=== PATIENT | female | born 1945 | race Caucasian/White ===

== ENCOUNTER → 2017-02-20 | Outpatient (CLI) | payer MEDICARE ==
--- NOTE | 2017-02-20 14:11 | BD ---
EXAMINATION TYPE: MG DEXA axial skeleton. DATE OF EXAM: 02/20/2017 COMPARISON: NONE CLINICAL HISTORY: Z13.820 Screening for Osteoporosis Height: 63.5 Weight: 147.4 FRAX RISK QUESTIONS: Alcohol (3 or more units per day): no Family History (Parent hip fracture): no Glucocorticoids (More than 3mos): yes- asthma meds (Ex: prednisone, prednisolone, methylprednisolone, dexamethasone, and hydrocortisone). History of Fracture in Adulthood: no Secondary Osteoporosis: 1. Type 1 Diabetes: no 2. Hyperthyroidism: no 3. Menopause before 45: yes 4. Malnutrition: no 5. Chronic liver disease: no Rheumatoid Arthritis: yes Current Tobacco Use: no RISK FACTORS HISTORY OF: Hip Fracture (Right/Left): no Spine Fracture: no History of Wrist Fracture: no Surgery to Spine/Hip(right/left)/Wrist (right/left): no Family History of Osteoporosis: yes/ aunt Active: yes Diet low in dairy products/other sources of calcium: no Postmenopausal woman: age 43 Lost more than 2 inches in height since high school: no Frequent falls: no Poor Health: no Hyperparathyroidism: no Adrenal Insufficiency: no MEDICATIONS: ultram, probiotic, zantac Prednisone or other steroids: yes -asthma EXAM MEASUREMENTS: Bone mineral densitometry was performed using the [employer] System. Bone mineral density as measured about the Lumbar spine is: ----- L1-L4(G/cm2): 0.674 T Score Values are as follows: ----- L2: -4.6 ----- L3: -4.3 ----- L4: -3.9 ----- L1-L4: -4.2 Bone mineral density has: decreased -18.2 % since study of: 08.06.2002 Bone mineral density about the R hip (g/cm2): 0.755 Bone mineral density about the L hip (g/cm2): 0.769 T Score values are as follows: -----R Neck: -2.0 -----L Neck: -1.9 -----R Total: -1.7 -----L Total: -1.2 Bone mineral density has: decreased -14.9 % since study of: 08.06.2002 IMPRESSION: 1. Osteoporosis lumbar spine. 2. Osteopenia bilateral femora NOTE: T-SCORE=SD OF THE YOUNG ADULT MEAN.
--- NOTE | 2017-02-21 11:18 | MM ---
Reason for exam: screening (asymptomatic). Last mammogram was performed 9 years and 3 months ago. History: Patient is postmenopausal. Physical Findings: A clinical breast exam by your physician is recommended on an annual basis and results should be correlated with mammographic findings. MG 3D Screening Mammo W/Cad Bilateral CC and MLO view(s) were taken. Prior study comparison: November 13, 2007, bilateral digital screening mammogram. October 26, 2004, bilateral screening mammogram. There are scattered fibroglandular densities. Finding: There are a few typically benign dystrophic calcifications in both breasts. There is no discrete abnormality. ASSESSMENT: Negative, BI-RAD 1 RECOMMENDATION: Routine screening mammogram of both breasts in 1 year.
== END | disposition home or self-care (01) ==
LOC: RADMAMWWP 11:55
PROVIDERS: ATTEND Family Medicine
DX: Z12.31 Encounter for screening mammogram for malignant neoplasm of breast (principal); M85.89 Other specified disorders of bone density and structure, multiple sites; M81.0 Age-related osteoporosis without current pathological fracture
CPT/HCPCS: 77080; 77063; G0202

== ENCOUNTER → 2017-04-21 | Outpatient (CLI) | payer MEDICARE ==
--- NOTE | 2017-04-21 12:36 | XR ---
EXAMINATION TYPE: XR chest 2V DATE OF EXAM: 04/21/2017 COMPARISON: NONE HISTORY: Shortness of breath TECHNIQUE: Frontal and lateral views of the chest are obtained. FINDINGS: Scattered senescent parenchymal changes noted. Hyperinflation compatible with COPD. No evidence for infiltrate. No evidence for atelectasis. Heart size is stable. Mediastinal structures are stable and grossly unremarkable. No evidence for hilar prominence. Degenerative changes dorsal spine. IMPRESSION: 1. No evidence for acute pulmonary disease.
== END | disposition home or self-care (01) ==
LOC: RADXRMAIN 12:18
PROVIDERS: ATTEND Internal Medicine Pulmonary Disease
DX: R06.02 Shortness of breath (principal)
CPT/HCPCS: 71020

== ENCOUNTER → 2018-06-11 | Outpatient (CLI) | payer MEDICARE ==
--- NOTE | 2018-06-12 05:24 | CT ---
EXAMINATION TYPE: CT chest wo con DATE OF EXAM: 06/11/2018 COMPARISON: 05/16/2017 and 01/04/2011 HISTORY: 72 year-old female history of asthma, f/u lung nodule TECHNIQUE: Contiguous axial scanning of the chest without IV contrast. Coronal and sagittal reconstru ctions performed. CT DLP: 444 mGycm Automated exposure control for dose reduction was used. FINDINGS: Heart normal size without pericardial effusion. Ectatic ascending aorta 3.9 cm with conventional arch was a branching anatomy. No thoracic lymphadenopathy by CT size criteria. Biapical pleural parenchymal scarring redemonstrated along with mild to moderate upper lung predomina nt centrilobular emphysema and mild diffuse bronchial wall thickening. Stable 7 mm subpleural pulmonary nodule overlying the right hemidiaphragm, axial image 46. Stability for a year suggests a benign etiology. It is likely present back in 2010 as well. Some strandy scarring at the inferior lingula is unchanged. No new pulmonary nodule is seen. No conso lidation or pleural effusion. Small to moderate-sized hernia. Indeterminate bilateral renal lesions measuring up to 2.6 cm, 2 seen on the right and 1 anteriorly on the left. These are also seen on 05/16/2017 suggesting benign etiologies. Tiny subcentimeter hypodens ity right hepatic lobe was present back in 2010. Bones: Vertebral compression deformity of T7 redemonstrated, unchanged for a year. IMPRESSION: 1. 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 2. STABLE BIAPICAL PLEURAL PARENCHYMAL SCARRING AND A 7 MM SUBPLEURAL RIGHT BASILAR PULMONARY NODULE SUGGESTING A BENIGN ETIOLOGY. 3. SMALL TO MODERATE SIZED HIATAL HERNIA, STABLE BILATERAL RENAL LESIONS MEASURING UP TO 2.[address] OF CYSTS, AND STABLE T7 VERTEBRAL COMPRESSION DEFORMITY FROM LAST YEAR.
== END | disposition home or self-care (01) ==
LOC: RADCTMAIN 15:20
PROVIDERS: ATTEND Internal Medicine Pulmonary Disease
DX: J43.9 Emphysema, unspecified (principal); J98.4 Other disorders of lung; R91.1 Solitary pulmonary nodule; K44.9 Diaphragmatic hernia without obstruction or gangrene; J45.40 Moderate persistent asthma, uncomplicated
CPT/HCPCS: 71250

== ENCOUNTER → 2019-03-08 | Outpatient (CLI) | payer MEDICARE ==
--- NOTE | 2019-03-08 20:08 | BD ---
EXAMINATION TYPE: Axial Bone Density DATE OF EXAM: 03/08/2019 COMPARISON:02/20/2017 CLINICAL HISTORY: 73-year-old female age-related osteoporosis Height: 62.7 IN Weight: 146 LBS FRAX RISK QUESTIONS: Glucocorticoids (More than 3mos): QVAR INHALER. 80 M/G 2 PUFFS PER DAY (Ex: prednisone, prednisolone, methylprednisolone, dexamethasone, and hydrocortisone). Secondary Osteoporosis: 3. Menopause before 45: YES AGE 43 RISK FACTORS HISTORY OF: Spine Fracture: YES THORACIC SPINE When: 2012 Family History of Osteoporosis: YES SISTER Active: MODERATE Postmenopausal woman: AGE 43 MEDICATIONS: Prednisone or other steroids: QVAR 80 MG 2 PUFFS PER DAY How Lon YEARS Osteoporosis Medications: YES Which medication: RECLAST How Lon Additional Medications: VIT D, QVAR, PAIN PILL, PROBIOTIC EXAM MEASUREMENTS: Bone mineral densitometry was performed using the [employer] System. Bone mineral density as measured about the Lumbar spine is: ----- L1-L4(G/cm2): 0.762 T Score Values are as follows: ----- L2: -3.9 ----- L3: -3.2 ----- L4: -3.5 ----- L1-L4: -3.5 Bone mineral density has: Increased 12.9% since study of: 02/20/2017 Bone mineral density about the R hip (g/cm2): 0.758 Bone mineral density about the L hip (g/cm2): 0.824 T Score values are as follows: -----R Neck: -2.0 -----L Neck: -1.5 -----R Total: -1.4 -----L Total: -1.0 Bone mineral density has: Increased 3.4% since study of: 02/20/2017 IMPRESSION: Osteoporosis (T Score less than -2.5). There is increased fracture risk and therapy is usually indicated based on age. Re-Screen 1-2 years. NOTE: T-SCORE=SD OF THE YOUNG ADULT MEAN.
--- NOTE | 2019-03-09 10:06 | MM ---
Reason for exam: screening (asymptomatic). Last mammogram was performed 2 years and 1 month ago. History: Patient is postmenopausal. Physical Findings: A clinical breast exam by your physician is recommended on an annual basis and results should be correlated with mammographic findings. MG 3D Screening Mammo W/Cad Bilateral CC and MLO view(s) were taken. Prior study comparison: February 20, 2017, bilateral MG 3d screening mammo w/cad. November 13, 2007, bilateral digital screening mammogram. The breast tissue is heterogeneously dense. This may lower the sensitivity of mammography. Benign appearing bilateral calcifications. No suspicious abnormality. No significant changes when compared with prior studies. ASSESSMENT: Benign, BI-RAD 2 RECOMMENDATION: Routine screening mammogram of both breasts in 1 year.
== END | disposition home or self-care (01) ==
LOC: RADMAMWWP 10:12
PROVIDERS: ATTEND Family Medicine
DX: Z12.31 Encounter for screening mammogram for malignant neoplasm of breast (principal); M81.0 Age-related osteoporosis without current pathological fracture
CPT/HCPCS: 77063; 77067; 77080

== ENCOUNTER → 2021-03-28 | Outpatient (CLI) | payer MEDICARE ==
--- NOTE | 2021-03-30 09:46 | MM ---
Reason for exam: screening (asymptomatic). Last mammogram was performed 2 years and 1 month ago. History: Patient is postmenopausal. Physical Findings: A clinical breast exam by your physician is recommended on an annual basis and results should be correlated with mammographic findings. MG Screening Mammo w CAD Bilateral CC and MLO view(s) were taken. Prior study comparison: March 08, 2019, bilateral MG 3d screening mammo w/cad. February 20, 2017, bilateral MG 3d screening mammo w/cad. There are scattered fibroglandular densities. There are benign appearing round calcifications bilaterally. There is no discrete abnormality. ASSESSMENT: Benign, BI-RAD 2 RECOMMENDATION: Routine screening mammogram of both breasts in 1 year.
== END | disposition home or self-care (01) ==
LOC: RADMAMWWP 16:09
PROVIDERS: ATTEND Family Medicine
DX: Z12.31 Encounter for screening mammogram for malignant neoplasm of breast (principal); Z78.0 Asymptomatic menopausal state
CPT/HCPCS: 77067

== ENCOUNTER 2021-06-28 23:20 | Emergency (ER) | payer MEDICARE ==
[2021-06-28 23:28] VITALS: RESP 16
--- NOTE | 2021-06-29 01:04 | XR ---
EXAMINATION TYPE: XR Hip RT and AP Pelvis DATE OF EXAM: 06/29/2021 COMPARISON: NONE HISTORY: Hip pain TECHNIQUE: 3 views FINDINGS: The pelvic ring is intact. Proximal right femur and hip joint are intact. Sacroiliac joints are intact. IMPRESSION: Negative pelvis and right hip exam. No fracture.
--- NOTE | 2021-06-29 01:40 | CT ---
EXAMINATION TYPE: CT pelvis wo con DATE OF EXAM: 06/29/2021 COMPARISON: 09/19/2014 HISTORY: Pelvic pain after fall; right hip pain CT DLP: 325.6 mGycm Automated exposure control for dose reduction was used. Images obtained from the lower lumbar spine to the subtrochanteric femurs without contrast. Appendix appears normal. There is no free fluid in the pelvis. Bladder distends smoothly. There is no evidence of pelvic mass. Sacroiliac joints are intact. There is L5 spondylolysis with a first-degree L5-S1 spondylolisthesis. The proximal femurs and hip joints are intact. There is no evidence of hip fracture. IMPRESSION: No acute bony abnormality. There is a first-degree L5-S1 spondylolisthesis. No change compared to old exam. No evidence of hip fracture.
--- NOTE | 2021-06-29 02:02 | ED ---
Fall HPI - General Chief Complaint: Fall Stated Complaint: Fall, Back Pain Time Seen by Provider: 06/28/21 23:45 Source: patient, EMS Mode of arrival: EMS - History of Present Illness Initial Comments: 75-year-old female patient presents to the emergency department today for evaluation of right hip and groin pain. States earlier in the day around 1630 she fell down a couple of steps out of the garage. States that she laid on the ground for approximately 30 minutes then was able to get up and get herself into the house though with a lot of pain. States that she was able to sit without pain. States when she twists or lays on her right side the pain worsens. States in is over the right lateral hip and into the right groin. States walking makes the pain worse. She denies any pain radiation down her legs. Denies numbness or tingling to the lower extremities. She denies hitting her head or losing consciousness. Denies any neck or back pain. Denies use of blood thinning medications. She does have history of chronic sciatica and takes Ultram. She did not take any today. Patient denies any headache, chest pain, shortness of breath, dizziness, weakness, abdominal pain, nausea, vomiting, or difficulties with bowel movements or urination. - Related Data Home Medications Medication Instructions Recorded Confirmed Beclomethasone Dipropionate [Qvar 2 puff INHALATION DAILY 10/26/13 04/11/17 80 mcg/puff] L.acidoph/B.long/L.plant/B.lac 1 each PO HS 10/26/13 04/11/17 [Probiotic Acidophilus Beads] Calcium Citrate/Vitamin D3 1 each PO DAILY 04/11/17 04/11/17 [Calcitrate + Vit D Caplet] raNITIdine HCL [Zantac] 75 mg PO DAILY 04/11/17 04/11/17 traMADol HCl [Ultram] 50 mg PO Q6H PRN 04/11/17 04/11/17 Allergies Allergy/AdvReac Type Severity Reaction Status Date / Time No Known Allergies Allergy Verified 06/28/21 23:24 Review of Systems ROS Statement: Those systems with pertinent positive or pertinent negative responses have been documented in the HPI. ROS Other: All systems not noted in ROS Statement are negative. Past Medical History Past Medical History: Asthma, GERD/Reflux, Musculoskeletal Disorder Additional Past Medical History / Comment(s): fx vertebrae-back 2012, GERD worse lately History of Any Multi-Drug Resistant Organisms: None Reported Past Surgical History: Orthopedic Surgery Additional Past Surgical History / Comment(s): Multiple lumbar HELEN's for back pain. Bilateral carpal tunnel Past Anesthesia/Blood Transfusion Reactions: No Reported Reaction Past Psychological History: No Psychological Hx Reported Smoking Status: Former smoker Past Alcohol Use History: None Reported Past Drug Use History: None Reported General Exam Limitations: no limitations General appearance: alert, in no apparent distress, other (This is a well- developed, well-nourished elderly female patient in no acute distress.) Eye exam: Present: normal appearance, PERRL, EOMI. Absent: scleral icterus, conjunctival injection, nystagmus, periorbital swelling ENT exam: Present: normal exam, normal oropharynx, mucous membranes moist Neck exam: Present: normal inspection, full ROM, other (Nontender, no step-off, no deformity to firm midline palpation of the posterior cervical spine. Full range of motion without pain or limitation.). Absent: tenderness, meningismus, lymphadenopathy Respiratory exam: Present: normal lung sounds bilaterally. Absent: respiratory distress, wheezes, rales, rhonchi, stridor Cardiovascular Exam: Present: regular rate, normal rhythm, normal heart sounds. Absent: systolic murmur, diastolic murmur, rubs, gallop, clicks GI/Abdominal exam: Present: soft, normal bowel sounds. Absent: distended, tenderness, guarding, rebound, rigid Extremities exam: Present: normal inspection, full ROM, normal capillary refill, other (Skin to the extremities is pink, warm, dry. Cap refill less than 3 seconds. Pedal and posttibial pulses 2+.). Absent: tenderness, pedal edema, joint swelling, calf tenderness Back exam: Present: normal inspection, other (No bony step-off or deformity noted to for midline palpation of the thoracic and lumbar spines.). Absent: paraspinal tenderness, vertebral tenderness Neurological exam: Present: alert, oriented X3, CN II-XII intact Psychiatric exam: Present: normal affect, normal mood Skin exam: Present: warm, dry, intact, normal color. Absent: rash Course Vital Signs 06/28/21 06/29/21 23:25 02:11 Pulse Rate 63 82 Respiratory 16 16 Rate Blood Pressure 133/104 145/90 O2 Sat by Pulse 96 98 Oximetry Medical Decision Making - Medical Decision Making 75-year-old female patient presented to the emergency department today for evaluation of right hip and groin pain after a fall earlier today. Physical examination reveals normal neurovascular status of the lower extremities. No spinal tenderness. Abdomen soft and nontender. X-ray of the right hip and pelvis was obtained and was negative. CT the bony pelvis was obtained and showed no acute abnormalities. Patient is able to stand and ambulate though with some pain. She is given pain medication here. She will be discharged follow up with her primary care physician for recheck in one to days. Return parameters were discussed in detail patient verbalizes understanding and agrees with this plan. My attending is Dr. Panchal. - Radiology Data Radiology results: report reviewed, image reviewed CT pelvis without contrast was obtained. Report was reviewed in its entirety. Impression by Dr. Ledesma shows no acute bony abnormality. There is first- degree L5 to S1 spondylolisthesis. No change compared to old exam. No evidence of hip fracture. X-ray of the right hip and AP pelvis is obtained. Report was reviewed in its entirety. Impression by Dr. Ledesma shows negative pelvis and right hip exam. No fracture. Disposition Clinical Impression: Contusion of right hip, Strain of right hip Disposition: HOME SELF-CARE Condition: Good Instructions (If sedation given, give patient instructions): Low Back Strain (ED), Hip Contusion (ED) Additional Instructions: Apply ice to the painful areas. Take her home pain medication as needed. Follow-up with the primary care physician for further evaluation as soon as possible. Return for any new, worsening, or concerning symptoms. Is patient prescribed a controlled substance at d/c from ED?: No Referrals: Violette Henry MD [Primary Care Provider] - 1-2 days Time of Disposition: 02:02
[2021-06-29 02:12] VITALS: BP 145/90; PULSE 82
[2021-06-29] MEDS ORDERED: traMADol 50 MG TAB PO STA (02:13)
== END 2021-06-29 03:37 | disposition home or self-care (01) ==
LOC: EC 23:20
DX: S76.011A Strain of muscle, fascia and tendon of right hip, initial encounter (principal); S70.01XA Contusion of right hip, initial encounter; J45.909 Unspecified asthma, uncomplicated; K21.9 Gastro-esophageal reflux disease without esophagitis; Z87.891 Personal history of nicotine dependence; W10.9XXA Fall (on) (from) unspecified stairs and steps, initial encounter
CPT/HCPCS: 72192; 73502; 99284

== ENCOUNTER 2021-09-07 10:26 | Emergency (ER) | payer MEDICARE ==
[2021-09-07 10:31] VITALS: TEMP 98.6
--- NOTE | 2021-09-07 11:26 | ED ---
General Adult HPI - General Chief complaint: Arrhythmia/Palpitations Stated complaint: Heart Palpitations Time Seen by Provider: 09/07/21 11:01 Source: patient Mode of arrival: ambulatory Limitations: no limitations - History of Present Illness Initial comments: Dictation was produced using [employer] dictation software. please excuse any grammatical, word or spelling errors. Chief Complaint: 75-year-old female presents emergency department for palpitations History of Present Illness:. 75-year-old female she does not have any signif icant comorbidities. She states that overnight she is having multiple bouts of sensation of palpitations. Some was that she was not able to sleep. Denies any caffeine ingestion yesterday. Patient has had 1 time of palpitations several years ago that resolved on its own. She denies any chest pain. She otherwise feels well. She denies any palpitations at the moment. The ROS documented in this emergency department record has been reviewed and confirmed by me. Those systems with pertinent positive or negative responses have been documented in the HPI. All other systems are other negative and/or noncontributory. PHYSICAL EXAM: General Impression: Alert and oriented x3, not in acute distress HEENT: Normocephalic atraumatic, extra-ocular movements intact, pupils equal and reactive to light bilaterally, mucous membranes moist. Cardiovascular: Heart regular rate and rhythm Chest: Able to complete full sentences, no retractions, no tachypnea Abdomen: abdomen soft, non-tender, non-distended, no organomegaly Musculoskeletal: Pulses present and equal in all extremities, no peripheral edema Motor: no focal deficits noted Neurological: CN II-XII grossly intact, no focal motor or sensory deficits noted Skin: Intact with no visualized rashes Psych: Normal affect and mood ED course: 75-year-old well-appearing female presents emergency Department chief complaint palpitations. EKG interpretation: Ventricular rate 58, sinus bradycardia, WY interval 172, care 72, QTc 432. No WY prolongation, no QTC prolongation, no ST or T-wave changes noted. No old EKG for comparison. Overall, this EKG is unremarkable Laboratory evaluation obtained. CBC, metabolic panel is unremarkable. Troponin is negative per chest x-ray shows no acute findings. Patient's telemetry [facility] was reviewed showing no significant events. Patient reevaluated the bedside 12:30 PM found to be stable medical condition per she denies any palpitations while being in the ER. Patient will be discharged advised follow-up with primary care doctor for outpatient management per she is told that she would likely benefit from Holter monitoring. She is told to inquire with her primary care physician about having this arranged otherwise she is given referral to cardiology. - Related Data Home Medications Medication Instructions Recorded Confirmed Beclomethasone Dipropionate [Qvar 2 puff INHALATION RT-DAILY 10/26/13 09/07/21 80 mcg/puff] traMADol HCl [Ultram] 25 mg PO BID 04/11/17 09/07/21 Acetaminophen Tab [Tylenol Tab] 1,000 mg PO Q6H PRN 09/07/21 09/07/21 Cholecalciferol [Vitamin D3 (25 50 mcg PO DAILY 09/07/21 09/07/21 Mcg = 1000 Iu)] Latanoprost/Pf [Latanoprost 0.005% 1 drop RIGHT EYE HS 09/07/21 09/07/21 Eye Drop] Allergies Allergy/AdvReac Type Severity Reaction Status Date / Time No Known Allergies Allergy Verified 09/07/21 12:02 Review of Systems ROS Statement: Those systems with pertinent positive or pertinent negative responses have been documented in the HPI. ROS Other: All systems not noted in ROS Statement are negative. Past Medical History Past Medical History: Asthma, GERD/Reflux, Musculoskeletal Disorder Additional Past Medical History / Comment(s): fx vertebrae-back 2012, GERD worse lately History of Any Multi-Drug Resistant Organisms: None Reported Past Surgical History: Orthopedic Surgery Additional Past Surgical History / Comment(s): Multiple lumbar HELEN's for back pain. Bilateral carpal tunnel Past Anesthesia/Blood Transfusion Reactions: No Reported Reaction Past Psychological History: No Psychological Hx Reported Smoking Status: Former smoker Past Alcohol Use History: None Reported Past Drug Use History: None Reported General Exam Limitations: no limitations Course Vital Signs 09/07/21 09/07/21 10:28 10:56 Temperature 98.6 F Pulse Rate 68 Pulse Rate [ 56 L Telephone Information Supervisor ] Respiratory 20 Rate Blood Pressure 166/80 O2 Sat by Pulse 97 Oximetry Medical Decision Making - Lab Data Result diagrams: 09/07/21 11:13 09/07/21 11:13 Lab Results 09/07/21 09/07/21 09/07/21 Range/Units 11:13 11:13 11:13 WBC 6.4 (3.8-10.6) k/uL RBC 4.93 (3.80-5.40) m/uL Hgb 15.4 (11.4-16.0) gm/dL Hct 47.9 H (34.0-46.0) % MCV 97.2 (80.0-100.0) fL MCH 31.2 (25.0-35.0) pg MCHC 32.1 (31.0-37.0) g/dL RDW 13.0 (11.5-15.5) % Plt Count 353 (150-450) k/uL MPV 7.0 Neutrophils % 65 % Lymphocytes % 20 % Monocytes % 6 % Eosinophils % 6 % Basophils % 1 % Neutrophils # 4.1 (1.3-7.7) k/uL Lymphocytes # 1.3 (1.0-4.8) k/uL Monocytes # 0.4 (0-1.0) k/uL Eosinophils # 0.4 (0-0.7) k/uL Basophils # 0.0 (0-0.2) k/uL Sodium 138 (137-145) mmol/L Potassium 4.3 (3.5-5.1) mmol/L Chloride 108 H (98-107) mmol/L Carbon Dioxide 25 (22-30) mmol/L Anion Gap 5 mmol/L BUN 13 (7-17) mg/dL Creatinine 0.77 (0.52-1.04) mg/dL Est GFR (CKD-EPI)AfAm 89 (>60 ml/min/1.73 sqM) Est GFR (CKD-EPI)NonAf 77 (>60 ml/min/1.73 sqM) Glucose 83 (74-99) mg/dL Calcium 8.5 (8.4-10.2) mg/dL Magnesium 2.0 (1.6-2.3) mg/dL Troponin I <0.012 (0.000-0.034) ng/mL Disposition Clinical Impression: Palpitations Disposition: HOME SELF-CARE Condition: Good Instructions (If sedation given, give patient instructions): Heart Palpitations (ED) Is patient prescribed a controlled substance at d/c from ED?: No Referrals: Violette Henry MD [Primary Care Provider] - 1-2 days Tam Stokes MD [STAFF PHYSICIAN] - 1-2 days
[2021-09-07 11:30] LABS: Basophils % (A) 1 %; Eosinophils # (A) 0.4 k/uL (0-0.7); Eosinophils % (A) 6 %; HCT 47.9 % (34.0-46.0); HGB 15.4 gm/dL (11.4-16.0); Lymphocytes # (A) 1.3 k/uL (1.0-4.8); Lymphocytes % (A) 20 %; MCH 31.2 pg (25.0-35.0); MCHC 32.1 g/dL (31.0-37.0); MCV 97.2 fL (80.0-100.0); Monocytes # (A) 0.4 k/uL (0-1.0); Monocytes % (A) 6 %; Neutrophils # (A) 4.1 k/uL (1.3-7.7); Neutrophils % (A) 65 %; Platelet Count 353 k/uL (150-450); RBC 4.93 m/uL (3.80-5.40); WBC 6.4 k/uL (3.8-10.6)
[2021-09-07 11:45] LABS: Calcium 8.5 mg/dL (8.4-10.2)
[2021-09-07 11:46] LABS: Potassium 4.3 mmol/L (3.5-5.1)
--- NOTE | 2021-09-07 12:13 | XR ---
EXAMINATION TYPE: XR chest 1V portable DATE OF EXAM: 09/07/2021 COMPARISON: Chest x-ray 02/02/2017. CT chest June 11, 2018. HISTORY: Palpitations. TECHNIQUE: Single AP portable frontal upright view of the chest is obtained. FINDINGS: There is mild chronic emphysematous change without suspicious focal air space opacity, ple ural effusion, or pneumothorax seen. The cardiac silhouette size is within normal limits. The osse ous structures are demineralized. IMPRESSION: Chronic emphysematous change without acute pulmonary process.
[2021-09-07 13:12] VITALS: BP 124/78; PULSE 60; RESP 16
== END 2021-09-07 13:12 | disposition home or self-care (01) ==
LOC: EC 10:26
DX: R00.2 Palpitations (principal); J45.909 Unspecified asthma, uncomplicated; K21.9 Gastro-esophageal reflux disease without esophagitis; Z87.891 Personal history of nicotine dependence; Z79.899 Other long term (current) drug therapy
CPT/HCPCS: 36415; 71045; 80048; 83735; 84484; 85025; 93005; 99285

== ENCOUNTER → 2022-03-07 | Outpatient (CLI) | payer MEDICARE ==
--- NOTE | 2022-03-07 12:52 | CT ---
EXAMINATION TYPE: CT chest wo con CT DLP: 246.7 mGycm, Automated exposure control for dose reduction was used. DATE OF EXAM: 03/07/2022 12:33 PM COMPARISON: 06/11/2018 CLINICAL INDICATION:Female, 76 years old with history of R911, cough TECHNIQUE: Multiple axial images were obtained through the chest. Sagittal and coronal reformats were created for review. Contrast used: none. Oral contrast used: none. FINDINGS: LUNGS/ PLEURA: No evidence focal consolidation, pneumothorax or pleural fusion. Mild centrilobular em physema changes. No evidence for suspicious nodule. Streaky scarring seen in the left upper lobe. Ser ies 4 image 9, unchanged from prior in 2018. AIRWAY: Patent and unremarkable. HEART: Size within normal limits. MEDIASTINUM: No gross evidence of adenopathy. Slightly asymmetric distal esophageal thickening best a ppreciated on series 3 image 50 measuring up to 13 mm anteriorly. VASCULATURE: No aortic aneurysm. Infrarenal aortic ectasia measuring up to 2.2 cm. Ascending thoraci c aorta dilation up to 4.1 cm. MUSCULOSKELETAL: No acute osseous abnormalities, similar T7 compression deformity. SOFT TISSUES/LYMPH NODES: Unremarkable. LOWER NECK: No significant findings. UPPER ABDOMEN: Indeterminate right renal lesion measuring up to 19 mm and 30 Hounsfield units. Additi onal bilateral renal cysts. The gallbladder surgically absent. IMPRESSION: 1. No evidence for acute process within the chest. No evidence for pneumonia, 2. Asymmetric distal esophageal wall thickening further workup recommended, consider direct visualiz ation to rule out underlying adenocarcinoma. 3. Ascending thoracic aorta ectasia up to 4.1 cm, This may be minimally increased from 2018 where it was 3.9 cm. 4. Indeterminate right renal cyst. Consider MRI renal mass protocol for further characterization.
== END | disposition home or self-care (01) ==
LOC: RADCTMAIN 12:09
PROVIDERS: ATTEND Internal Medicine Pulmonary Disease
DX: J47.9 Bronchiectasis, uncomplicated (principal); K63.89 Other specified diseases of intestine; I77.810 Thoracic aortic ectasia
CPT/HCPCS: 71250

== ENCOUNTER 2023-06-21 10:03 | Emergency (ER) | payer MEDICARE ==
--- NOTE | 2023-06-21 10:57 | ED ---
General Adult HPI - General Source: patient Mode of arrival: ambulatory Limitations: no limitations <Brian Mehta - Last Filed: 06/21/23 11:07> <Brad Yadav - Last Filed: 06/21/23 14:26> - General Chief complaint: Upper Respiratory Infection Stated complaint: congestion sob - History of Present Illness Initial comments: Quick note: Patient states she started out with weakness 2 weeks ago. She went to the doctor and was diagnosed with a virus- was put on an antiviral. She then started a z-pack 5 days ago. 2 days she developed some shortness of breath. She denies fevers (Brian Mehta) Dictation was produced using [employer] dictation software. please excuse any grammatical, word or spelling errors. Chief Complaint: 77-year-old female presents emergency Department with URI type symptoms for a couple of weeks History of Present Illness: 77-year-old female presents with 2-3 weeks of cough congestion symptoms. Shortly course of antibiotics and acyclovir prescribed by her primary care physician. Patient states she's not improving. Denies any fever or constitutional symptoms. Denies any shortness of breath. She does have some sharp pleuritic chest pain to the right lower chest. Denies any history of DVTs PEs. Denies any lower extremity symptoms. Patient denies any shortness of breath. The ROS documented in this emergency department record has been reviewed and confirmed by me. Those systems with pertinent positive or negative responses have been documented in the HPI. All other systems are other negative and/or noncontributory. (Brad Yadav) - Related Data Home Medications Medication Instructions Recorded Confirmed Beclomethasone Dipropionate [Qvar 2 puff INHALATION RT-DAILY 10/26/13 09/07/21 80 mcg/puff] traMADol HCl [Ultram] 25 mg PO BID 04/11/17 09/07/21 Acetaminophen Tab [Tylenol Tab] 1,000 mg PO Q6H PRN 09/07/21 09/07/21 Cholecalciferol [Vitamin D3 (25 50 mcg PO DAILY 09/07/21 09/07/21 Mcg = 1000 Iu)] Latanoprost/Pf [Latanoprost 0.005% 1 drop RIGHT EYE HS 09/07/21 09/07/21 Eye Drop] Allergies Allergy/AdvReac Type Severity Reaction Status Date / Time No Known Allergies Allergy Verified 06/21/23 10:43 Review of Systems ROS Other: All systems not noted in ROS Statement are negative. <Brian Mehta - Last Filed: 06/21/23 11:07> ROS Other: All systems not noted in ROS Statement are negative. <Brad Yadav - Last Filed: 06/21/23 14:26> ROS Statement: Those systems with pertinent positive or pertinent negative responses have been documented in the HPI. Past Medical History Past Medical History: Asthma, GERD/Reflux, Musculoskeletal Disorder Additional Past Medical History / Comment(s): fx vertebrae-back 2012, GERD worse lately History of Any Multi-Drug Resistant Organisms: None Reported Past Surgical History: Orthopedic Surgery Additional Past Surgical History / Comment(s): Multiple lumbar HELEN's for back pain. Bilateral carpal tunnel Past Anesthesia/Blood Transfusion Reactions: No Reported Reaction Past Psychological History: No Psychological Hx Reported Smoking Status: Former smoker Past Alcohol Use History: None Reported Past Drug Use History: None Reported <Brian Mehta - Last Filed: 06/21/23 11:07> General Exam Limitations: no limitations <Brian Mehta - Last Filed: 06/21/23 11:07> <Brad Yadav - Last Filed: 06/21/23 14:26> - General Exam Comments Initial Comments: Visual exam: well appearing, no distress. (Brian Mehta) PHYSICAL EXAM: General Impression: Alert and oriented x3, not in acute distress HEENT: Normocephalic atraumatic, extra-ocular movements intact, pupils equal and reactive to light bilaterally, mucous membranes moist. Cardiovascular: Heart regular rate and rhythm Chest: Able to complete full sentences, no retractions, no tachypnea Abdomen: abdomen soft, non-tender, non-distended, no organomegaly Musculoskeletal: Pulses present and equal in all extremities, no peripheral edema Motor: no focal deficits noted Neurological: CN II-XII grossly intact, no focal motor or sensory deficits noted Skin: Intact with no visualized rashes Psych: Normal affect and mood (Brad Yadav) Course Vital Signs 06/21/23 06/21/23 06/21/23 10:41 12:46 12:49 Temperature 98.3 F 97.9 F Pulse Rate 67 57 L Respiratory 20 18 18 Rate Blood Pressure 147/73 169/86 O2 Sat by Pulse 96 99 Oximetry 06/21/23 13:21 Temperature Pulse Rate 61 Respiratory 18 Rate Blood Pressure 145/79 O2 Sat by Pulse 98 Oximetry EKG Findings - EKG Comments: EKG Findings:: My EKG interpretation: Ventricular rate 63, sinus rhythm,. Interval 170, QRS 76, QTC 459. No TN prolongation, no QTC prolongation, no ST or T-wave changes noted. Overall, this EKG is unremarkable <Brad Yadav - Last Filed: 06/21/23 14:26> Medical Decision Making - Lab Data Result diagrams: 06/21/23 12:30 06/21/23 12:30 <Brad Yadav - Last Filed: 06/21/23 14:26> - Medical Decision Making Was pt. sent in by a medical professional or institution (, PA, CAMPUS SAFETY OFFICER, urgent care, hospital, or group home...) When possible be specific @ -No Did you speak to anyone other than the patient for history (EMS, parent, family, police, friend...)? What history was obtained from this source @ -No Did you review nursing and triage notes (agree or disagree)? Why? @ -I reviewed and agree with nursing and triage notes Were old charts reviewed (outside hosp., previous admission, EMS record, old EKG , old radiological studies, urgent care reports/EKG's, group home records)? Report findings @ -No old charts were reviewed Differential Diagnosis (chest pain, altered mental status, abdominal pain women, abdominal pain men, vaginal bleeding, musculoskeletal, weakness, fever, dyspnea, syncope, headache, dizziness, GI bleed, back pain, seizure, CVA, palpatations, mental health)? @ -Differential Dyspnea: Coronary syndrome, arrhythmia, tamponade, asthma, COPD, pulmonary embolism, pneumonia, pneumothorax, pulmonary effusion, anaphylaxis, diabetic ketoacidosis, flailed chest, pulmonary contusion, diaphragmatic rupture, anemia, neuromusc ular, this is not meant to be an all-inclusive list. EKG interpreted by me (3pts min.). @ -None done X-rays interpreted by me (1pt min.). @ -Chest x-ray shows no acute processes CT interpreted by me (1pt min.). @ -None done U/S interpreted by me (1pt. min.). @ -None done What testing was considered but not performed or refused? (CT, X-rays, U/S, labs)? Why? @ -None What meds were considered but not given or refused? Why? @ -None Did you discuss the management of the patient with other professionals (professionals i.e. DrOsbaldo, PA, CAMPUS SAFETY OFFICER, lab, RT, psych nurse, high school social studies tutor, manager art, teacher, guest services officer, case specialist)? Give summary @ -No Was smoking cessation discussed for >3mins.? @ -No Was critical care preformed (if so, how long)? @ -No Were there social determinants of health that impacted care today? How? (Homelessness, low income, unemployed, alcoholism, drug addiction, transportation, low edu. Level, literacy, decrease access to med. care, halfway, rehab)? @ -No Was there de-escalation of care discussed even if they declined (Discuss DNR or withdrawal of care, Hospice)? DNR status @ -No What co-morbidities impacted this encounter? (DM, HTN, Smoking, COPD, CAD, Cancer, CVA, ARF, Chemo, Hep., AIDS, mental health diagnosis, sleep apnea, morbid obesity)? @ -None Was patient admitted / discharged? Hospital course, mention meds given and route, prescriptions, significant lab abnormalities, going to OR and other pertinent info. @ -77 Year-old feel presents with persistently URI type symptoms ongoing for the last 2 weeks. Vital signs are stable. Patient well-appearing at bedside. Physical examination is benign. Laboratory evaluation is unremarkable. X-rays negative. Patient is Nelson virus positive. Patient not a candidate for antiviral medications. Advised close follow-up with a primary care doctor. Undiagnosed new problem with uncertain prognosis? @ -No Drug Therapy requiring intensive monitoring for toxicity (Heparin, Nitro, Insulin, Cardizem)? @ -No Were any procedures done? @ -No Diagnosis/symptom? Acute, or Chronic, or Acute on Chronic? Uncomplicated (without systemic symptoms) or Complicated (systemic symptoms)? @ -Coronavirus Side effects of treatment? @ -No Exacerbation, Progression, or Severe Exacerbation? @ -No Poses a threat to life or bodily function? How? (Chest pain, [place], [place], pneumonia, PE, COPD, DKA, ARF, appy, cholecystitis, CVA, Diverticulitis, Homicidal, Suicidal, threat to staff... and all critical care pts) @ -No (Brad Yadav) - Lab Data Lab Results 06/21/23 06/21/23 06/21/23 Range/Units 10:45 12:30 12:30 WBC 6.3 (3.8-10.6) k/uL RBC 4.60 (3.80-5.40) m/uL Hgb 14.9 (11.4-16.0) gm/dL Hct 44.1 (34.0-46.0) % MCV 95.9 (80.0-100.0) fL MCH 32.4 (25.0-35.0) pg MCHC 33.8 (31.0-37.0) g/dL RDW 13.6 (11.5-15.5) % Plt Count 555 H (150-450) k/uL MPV 7.4 Neutrophils % 70 % Lymphocytes % 18 % Monocytes % 5 % Eosinophils % 4 % Basophils % 1 % Neutrophils # 4.4 (1.3-7.7) k/uL Lymphocytes # 1.1 (1.0-4.8) k/uL Monocytes # 0.3 (0-1.0) k/uL Eosinophils # 0.2 (0-0.7) k/uL Basophils # 0.1 (0-0.2) k/uL Sodium 142 (137-145) mmol/L Potassium 4.4 (3.5-5.1) mmol/L Chloride 103 (98-107) mmol/L Carbon Dioxide 29 (22-30) mmol/L Anion Gap 10 mmol/L BUN 13 (7-17) mg/dL Creatinine 0.75 (0.52-1.04) mg/dL Est GFR (CKD-EPI)AfAm >90 (>60 ml/min/1.73 sqM) Est GFR (CKD-EPI)NonAf 78 (>60 ml/min/1.73 sqM) Glucose 91 (74-99) mg/dL Calcium 9.5 (8.4-10.2) mg/dL Magnesium 2.4 H (1.6-2.3) mg/dL Total Bilirubin 0.4 (0.2-1.3) mg/dL AST 43 H (14-36) U/L ALT 31 (4-34) U/L Alkaline Phosphatase 73 (38-126) U/L Total Protein 7.2 (6.3-8.2) g/dL Albumin 3.9 (3.5-5.0) g/dL Influenza Type A (PCR) Not Detected (Not Detectd) Influenza Type B (PCR) Not Detected (Not Detectd) RSV (PCR) Not Detected (Not Detectd) SARS-CoV-2 (PCR) Detected A (Not Detectd) Disposition <Brian Mehta - Last Filed: 06/21/23 11:07> Is patient prescribed a controlled substance at d/c from ED?: No Time of Disposition: 14:15 <Brad Yadav - Last Filed: 06/21/23 14:26> Clinical Impression: Coronavirus infection Disposition: HOME SELF-CARE Condition: Good Instructions (If sedation given, give patient instructions): Coronavirus Disease 2019 (COVID-19) Referrals: Violette Henry MD [Primary Care Provider] - 1-2 days
[2023-06-21] MEDS ORDERED: SODIUM CHLORIDE 0.9% 1,000 ML IV STA (11:07)
--- NOTE | 2023-06-21 11:19 | XR ---
EXAMINATION TYPE: XR chest 2V DATE OF EXAM: 06/21/2023 COMPARISON: 09/07/2021 HISTORY: 77-year-old female with cough and congestion TECHNIQUE: PA and lateral views FINDINGS: The cardiomediastinal silhouette, aorta, and pulmonary vasculature are within normal limits. Mild hyp erinflation. Lungs and pleural spaces are clear. IMPRESSION: There is hyperinflation; correlate for underlying emphysema. Otherwise, no acute process seen.
[2023-06-21 12:36] LABS: Basophils # (A) 0.1 k/uL (0-0.2); Basophils % (A) 1 %; Eosinophils # (A) 0.2 k/uL (0-0.7); Eosinophils % (A) 4 %; HCT 44.1 % (34.0-46.0); HGB 14.9 gm/dL (11.4-16.0); Lymphocytes # (A) 1.1 k/uL (1.0-4.8); Lymphocytes % (A) 18 %; MCH 32.4 pg (25.0-35.0); MCHC 33.8 g/dL (31.0-37.0); MCV 95.9 fL (80.0-100.0); Mean Platelet Volume 7.4; Monocytes # (A) 0.3 k/uL (0-1.0); Monocytes % (A) 5 %; Neutrophils # (A) 4.4 k/uL (1.3-7.7); Neutrophils % (A) 70 %; Platelet Count 555 k/uL (150-450); RDW 13.6 % (11.5-15.5); WBC 6.3 k/uL (3.8-10.6)
[2023-06-21 12:53] VITALS: TEMP 97.9
[2023-06-21 12:57] LABS: ALT 31 U/L (4-34); AST 43 U/L (14-36); African American GFR (CKD) >90 (>60 ml/min/1.73 sqM); Albumin 3.9 g/dL (3.5-5.0); Alkaline Phosphatase 73 U/L (38-126); Anion Gap 10 mmol/L; Blood Urea Nitrogen 13 mg/dL (7-17); Calcium 9.5 mg/dL (8.4-10.2); Carbon Dioxide 29 mmol/L (22-30); Chloride 103 mmol/L (98-107); Glucose 91 mg/dL (74-99); Magnesium 2.4 mg/dL (1.6-2.3); Non-African American GFR(CKD) 78 (>60 ml/min/1.73 sqM); Potassium 4.4 mmol/L (3.5-5.1); Sodium 142 mmol/L (137-145); Total Bilirubin 0.4 mg/dL (0.2-1.3); Total Protein 7.2 g/dL (6.3-8.2)
[2023-06-21] MEDS ORDERED: traMADol 50 MG STARTER PACK 3 TAB BTL PO STA (14:14)
[2023-06-21 15:04] VITALS: BP 173/72; PULSE 58; RESP 20
== END 2023-06-21 14:52 | disposition home or self-care (01) ==
LOC: EC 10:03
DX: U07.1 COVID-19 (principal); J45.909 Unspecified asthma, uncomplicated; Z79.51 Long term (current) use of inhaled steroids; Z87.891 Personal history of nicotine dependence
CPT/HCPCS: 36415; 71046; 80053; 83735; 85025; 87636; 93005; 96360; 96361; 99285

== ENCOUNTER 2024-04-03 11:17 | Emergency (ER) | payer MEDICARE ==
--- NOTE | 2024-04-03 11:34 | ED ---
General Adult HPI - General Stated complaint: Poss. broken ribs Time Seen by Provider: 04/03/24 11:24 Source: patient Mode of arrival: ambulatory Limitations: no limitations - History of Present Illness Initial comments: This is a 78-year-old female with history of osteoporosis presenting with right Rib pain x 9 days. Patient states she was having physical therapy performed for her right shoulder when the physical therapist pressed on her right upper rib, hearing a pop/crack at the time. Patient states pain has been sharp and constant since that time. Patient states pain is worse with deep inhalation and coughing, occasionally radiating to her and worsens with right arm movement. Also endorses associated shortness of breath. Onset/Timin -: days(s) Location: chest Radiation: back Severity scale (1-10): 8 Quality: sharp Consistency: constant Improves with: rest Worsens with: movement, other (Breathing) Associated Symptoms: shortness of breath - Related Data Home Medications Medication Instructions Recorded Confirmed Beclomethasone Dipropionate [Qvar 2 puff INHALATION RT-DAILY 10/26/13 09/07/21 80 mcg/puff] traMADol HCl [Ultram] 25 mg PO BID 04/11/17 09/07/21 Acetaminophen Tab [Tylenol Tab] 1,000 mg PO Q6H PRN 09/07/21 09/07/21 Cholecalciferol [Vitamin D3 (25 50 mcg PO DAILY 09/07/21 09/07/21 Mcg = 1000 Iu)] Latanoprost/Pf [Latanoprost 0.005% 1 drop RIGHT EYE HS 09/07/21 09/07/21 Eye Drop] Previous Rx's Medication Instructions Recorded Ibuprofen [Motrin] 600 mg PO Q8HR PRN #20 tab 04/03/24 Allergies Allergy/AdvReac Type Severity Reaction Status Date / Time peanut Allergy Diarrhea Verified 04/03/24 11:36 Review of Systems ROS Statement: Those systems with pertinent positive or pertinent negative responses have been documented in the HPI. ROS Other: All systems not noted in ROS Statement are negative. Past Medical History Past Medical History: Asthma, GERD/Reflux, Musculoskeletal Disorder Additional Past Medical History / Comment(s): fx vertebrae-back 2012, GERD worse lately History of Any Multi-Drug Resistant Organisms: None Reported Past Surgical History: Orthopedic Surgery Additional Past Surgical History / Comment(s): Multiple lumbar HELEN's for back pain. Bilateral carpal tunnel Past Anesthesia/Blood Transfusion Reactions: No Reported Reaction Past Psychological History: No Psychological Hx Reported Smoking Status: Former smoker Past Alcohol Use History: None Reported Past Drug Use History: None Reported General Exam - General Exam Comments Initial Comments: Visual Physical Exam Vital signs reviewed General: Well-appearing, nontoxic, no acute distress. Head: Normocephalic, atraumatic Eyes: PERRLA, EOMI ENT: Airway patent Chest: Nonlabored breathing. Petechia noted over area of pain/injury. No obvious deformity Skin: No visual rash, normal skin tone Neuro: Alert and oriented 3 Musculoskeletal: No gross abnormalities General appearance: alert, in no apparent distress Head exam: Present: atraumatic, normocephalic, normal inspection Eye exam: Present: normal appearance, PERRL, EOMI. Absent: scleral icterus, conjunctival injection, periorbital swelling ENT exam: Present: normal exam, mucous membranes moist Neck exam: Present: normal inspection. Absent: tenderness, meningismus, lymphadenopathy Respiratory exam: Present: normal lung sounds bilaterally, chest wall tenderness (Right superior and anterior rib tenderness around ribs 2/3). Absent: respiratory distress, wheezes, rales, rhonchi, stridor Cardiovascular Exam: Present: regular rate, normal rhythm, normal heart sounds. Absent: systolic murmur, diastolic murmur, rubs, gallop, clicks GI/Abdominal exam: Present: soft, normal bowel sounds. Absent: distended, tenderness, guarding, rebound, rigid Extremities exam: Present: normal inspection, full ROM, normal capillary refill. Absent: tenderness, pedal edema, joint swelling, calf tenderness Back exam: Present: normal inspection Neurological exam: Present: alert, oriented X3, CN II-XII intact Psychiatric exam: Present: normal affect, normal mood Skin exam: Present: warm, dry, intact, normal color, petechiae (Positive petechiae noted over superior and anterior aspect of right upper chest with no obvious deformity. No pain with direct palpation without crepitus. Bilateral wheezing of ribs revealed no deformity or reproducible pain). Absent: rash Course Vital Signs 04/03/24 04/03/24 11:37 12:39 Temperature 98.5 F 97.8 F Pulse Rate 68 58 L Respiratory 18 18 Rate Blood Pressure 151/85 164/81 O2 Sat by Pulse 97 97 Oximetry Medical Decision Making - Medical Decision Making I completed the quick note portion of this chart signed JANICE Nieto- Rosalio Was pt. sent in by a medical professional or institution (JANICE Richard, SPRING FORMER MACHINE, urgent care, hospital, or long term...) When possible be specific @ -No Did you speak to anyone other than the patient for history (EMS, parent, family, police, friend...)? What history was obtained from this source @ -No Did you review nursing and triage notes (agree or disagree)? Why? @ -I reviewed and agree with nursing and triage notes Were old charts reviewed (outside hosp., previous admission, EMS record, old EKG, old radiological studies, urgent care reports/EKG's, long term records)? Report findings @ -No old charts were reviewed Differential Diagnosis (chest pain, altered mental status, abdominal pain women, abdominal pain men, vaginal bleeding, weakness, fever, dyspnea, syncope, headache, dizziness, GI bleed, back pain, seizure, CVA, palpatations, mental health, musculoskeletal)? @ -Rib fracture, rib contusion, pneumothorax, pectoral contusion, costochondritis-this is not an exhaustive list EKG interpreted by me (3pts min.). @ -Not done X-rays interpreted by me (1pt min.). @ -Right rib x-ray revealed no obvious fracture or pneumothorax CT interpreted by me (1pt min.). @ -None done U/S interpreted by me (1pt. min.). @ -None done What testing was considered but not performed or refused? (CT, X-rays, U/S, labs)? Why? @ -None What meds were considered but not given or refused? Why? @ -None Did you discuss the management of the patient with other professionals (professionals i.e. JANICE Richard, SPRING FORMER MACHINE, lab, RT, psych nurse, social media editor, metallurgical engineering technician, teacher, collection officer, bilingual patient support caseworker)? Give summary @ -No Was smoking cessation discussed for >3mins.? @ -No Was critical care preformed (if so, how long)? @ -No Were there social determinants of health that impacted care today? How? (Homelessness, low income, unemployed, alcoholism, drug addiction, transportation, low edu. Level, literacy, decrease access to med. care, long-term, rehab)? @ -No Was there de-escalation of care discussed even if they declined (Discuss DNR or withdrawal of care, Hospice)? DNR status @ -No What co-morbidities impacted this encounter? (DM, HTN, Smoking, COPD, CAD, Cancer, CVA, ARF, Chemo, Hep., AIDS, mental health diagnosis, sleep apnea, morbid obesity)? @ -None Was patient admitted / discharged? Hospital course, mention meds given and route, prescriptions, significant lab abnormalities, going to OR and other pertinent info. @ -Discharge. Patient provided cold compress and Toradol 15 mg IV for pain. Discharged with Motrin p.o. sent to pharmacy for ongoing pain management Undiagnosed new problem with uncertain prognosis? @ -No Drug Therapy requiring intensive monitoring for toxicity (Heparin, Nitro, Insulin, Cardizem)? @ -No Were any procedures done? @ -No Diagnosis/symptom? @ -Chest wall contusion Acute, or Chronic, or Acute on Chronic? @ -Acute Uncomplicated (without systemic symptoms) or Complicated (systemic symptoms)? @ -Uncomplicated Side effects of treatment? @ -No Exacerbation, Progression, or Severe Exacerbation? @ -No Poses a threat to life or bodily function? How? (Chest pain, [place], [place], pneumonia, PE, COPD, DKA, ARF, appy, cholecystitis, CVA, Diverticulitis, Homicidal, Suicidal, threat to staff... and all critical care pts) @ -No Disposition Clinical Impression: Rib contusion Disposition: HOME SELF-CARE Condition: Good Instructions (If sedation given, give patient instructions): Rib Contusion (ED) Prescriptions: Ibuprofen [Motrin] 600 mg PO Q8HR PRN #20 tab PRN Reason: Pain Is patient prescribed a controlled substance at d/c from ED?: No Referrals: Violette Henry MD [Primary Care Provider] - 1-2 days Time of Disposition: 12:38
[2024-04-03 11:41] VITALS: RESP 18
--- NOTE | 2024-04-03 12:00 | XR ---
PA chest and right ribs. HISTORY: Right upper rib pain following injury. COMPARISON: Chest dated 06/21/2023. TECHNIQUE: 5 views of the chest and right ribs are obtained FINDINGS: There are no rib fractures. The lungs are clear. Is no pleural effusion or pneumothorax. The heart and pulmonary vasculature are normal. The osseous structures are intact. IMPRESSION: 1. No acute cardiopulmonary disease. 2. No evidence of right rib fracture [facility], , 04/03/2024 11:58 AM
[2024-04-03] MEDS: KETOROLAC 15 MG/ML 1 ML VIAL IM STA (12:38)
[2024-04-03 12:43] VITALS: BP 164/81; PULSE 58; TEMP 97.8
== END 2024-04-03 12:44 | disposition home or self-care (01) ==
LOC: EC 11:17
CPT/HCPCS: 96372; 99283